=== PATIENT | female | born 1960 | race Caucasian/White ===

== ENCOUNTER 2017-09-08 00:13 | Emergency (ER) | payer OTHER ==
[~2017-09-08] VITALS: Ht 157.5 cm; Wt 72.6 kg
[2017-09-08] MEDS ORDERED: SINGULAIR 5MG5 MG (00:17)
[2017-09-08] MEDS ORDERED: ZYRTEC10 M3 (00:17)
[2017-09-08] MEDS ORDERED: DEXAMETHAS0.5 MG/5 M (00:18)
[2017-09-08] MEDS ORDERED: ALBUTEROL2.5 MG/3 M IH (05:42)
== END 2017-09-08 05:51 | disposition home or self-care (01) ==
LOC: ER 00:13
DX: J40 Bronchitis, not specified as acute or chronic (principal); J06.9 Acute upper respiratory infection, unspecified

== ENCOUNTER 2019-08-28 22:05 | Emergency (ER) | payer OTHER ==
[~2019-08-28] VITALS: Ht 152.4 cm; Wt 79.4 kg
[~2019-08-28 22:05] MED LIST: ALBUTEROL2.5 MG/3 M IH; DEXAMETHAS0.5 MG/5 M; SINGULAIR 5MG5 MG; ZYRTEC10 M3
[2019-08-28] MEDS ORDERED: ENALAPRIL-HCTZ1 EAC1 PO (22:19)
[2019-08-28] MEDS ORDERED: KEFLEX500 MG PO (22:20)
[2019-08-29] MEDS ORDERED: DOLOGESIC 500-1 EACH PO (04:18)
[2019-08-29] MEDS ORDERED: ZYNCOF 20-400120 ML PO (04:18)
[2019-08-29] MEDS ORDERED: ORASEP SPRAY30 ML MM (04:20)
[2019-08-29] MEDS ORDERED: PHENAGIL TABLE1 EACH PO (04:20)
== END 2019-08-29 04:39 | disposition home or self-care (01) ==
LOC: ER 22:05
DX: J06.9 Acute upper respiratory infection, unspecified (principal); R50.9 Fever, unspecified

== ENCOUNTER 2020-05-21 18:51 | Emergency (ER) | payer OTHER ==
[~2020-05-21] VITALS: Ht 157.5 cm; Wt 79.4 kg
[~2020-05-21 18:51] MED LIST changes: +DOLOGESIC 500-1 EACH PO; +ENALAPRIL-HCTZ1 EAC1 PO; +KEFLEX500 MG PO; +ORASEP SPRAY30 ML MM; +PHENAGIL TABLE1 EACH PO; +ZYNCOF 20-400120 ML PO
== END 2020-05-22 17:52 | disposition home or self-care (01) ==
LOC: ER 18:51
DX: U07.1 COVID-19 (principal); J12.89 Other viral pneumonia; B96.0 Mycoplasma pneumoniae [M. pneumoniae] as the cause of diseases classified elsewhere; R09.02 Hypoxemia; R06.02 Shortness of breath; I10 Essential (primary) hypertension